=== PATIENT | female | born 1980 | race Caucasian/White ===

== ENCOUNTER 2016-10-02 16:03 | Emergency (ER) | payer OTHER ==
[~2016-10-02 16:03] MED LIST: PHENERGAN25 M1 PO; PRENATAL MULTIV1 TA1; PRILOSEC20 MG PO; PROTONIX PO; SOMA PO; ULTRAM PO; VICODIN 5/500 T1 TAB PO; ZOFRAN PO; [UNRECOGNIZED DRUG - OTHER] PO
== END 2016-10-02 18:15 | disposition home or self-care (01) ==
LOC: CED 16:03
DX: G97.1 Other reaction to spinal and lumbar puncture (principal); F17.200 Nicotine dependence, unspecified, uncomplicated; Z88.0 Allergy status to penicillin; Z88.2 Allergy status to sulfonamides; Z98.51 Tubal ligation status; Z90.49 Acquired absence of other specified parts of digestive tract; Z90.710 Acquired absence of both cervix and uterus
CPT/HCPCS: 36415; 96361; 96374; 96375; 99284; J0595; J1200; J1885; J2765; J2930

== ENCOUNTER 2017-04-06 12:24 | Emergency (ER) | payer OTHER ==
[~2017-04-06] VITALS: Ht 165.1 cm; Wt 88.5 kg
--- NOTE | ~2017-04-06 | CT2 ---
[facility] A Service of [facility] RADIOLOGY TEXT RESULTS PATIENT: UMER HOYOS LOCATION: [facility] : 76 UNIT #: [id number] AGE: [address]: Tino Urban MD SEX: F ORDER DR: [id number] [facility] [address] [place], [place] [address] [id number] E MR#: [id number] Acc #: [id number] NAME: UMER HOYOS : 1980 SEX: F STUDY DATE/TIME: 04/06/2017 16:14 UNIT: [facility] ROOM: STUDY DESCRIPTION: CT Abd and Pelv W Cont Attending Physician: Tino Urban M.D. Ordering Physician: Tino Urban M.D. Primary Care Physician: Primary Care Physician No MEDICAL IMAGING REPORT This report is preliminary unless electronic signature is present EXAM CT abdomen and pelvis, 04/06/2017 HISTORY Pain. Left lower quadrant pain for 2 weeks. Bloody stools since 04/03/2017. TECHNIQUE CT abdomen and pelvis performed with intravenous administration of 100 mL Isovue-370. Enteric contrast also administered. No prior CTs of abdomen or pelvis for comparison. This CT exam was performed with one or more of the following radiation dose reduction techniques: automatic exposure control, adjustment of mA and/or kV according to patient size, and iterative reconstruction. FINDINGS The lung bases shows posterior left lower lobe subpleural noncalcified 3-4 mm nodule image #3 and posterior subpleural 2 mm noncalcified nodule image #2. Inferior heart and pericardium unremarkable. The liver, gallbladder, spleen, pancreas, adrenal glands, and kidneys are remarkable. CT PELVIS: No inguinal adenopathy. Urinary bladder unremarkable. Status post hysterectomy. No suspicious adnexal structures. I believe the patient retains the right ovary which is unremarkable in appearance. Left ovary not visualized. Please correlate with surgical history. There is no free fluid in the pelvis. There is no pelvic or retroperitoneal adenopathy. Distal esophagus, stomach, small bowel and appendix are normal. Ascending and transverse colon unremarkable. Mild mural prominence sigmoid colon without focal abnormality. This segment of colon is decompressed and the appearance could be a reflection of decompressed state. Correlate with any clinical concern for very mild sigmoid colitis. [facility]. [facility] [place] A Service of [facility] RADIOLOGY TEXT RESULTS PATIENT: UMER HOYOS LOCATION: [facility] : 76 UNIT #: [id number] AGE: [address]: Tino Urban MD SEX: F ORDER DR: Wait should be given clinical assessment. No focal wall thickening or obstruction. No free air, abscess or fluid collection. The vascular structures are remarkable. The bony structures show no clearly acute abnormality. IMPRESSION 1. Questionable mild mural thickening in the sigmoid colon. The appearance may simply reflect the decompressed state of the sigmoid colon. Correlate with any clinical concern for very mild colitis. There is no focal eccentric mural thickening. There is no free air, fluid collection, abscess or obstruction. 2. The remainder of the alimentary canal including appendix unremarkable. 3. Status post hysterectomy. I believe the patient retains normal right ovary. Left ovary not visualized. Correlate with surgical history. 4. There are two small 2-4 mm noncalcified subpleural nodules, left lung base. If the patient has risk factors for pulmonary malignancy including history of tobacco usage, 12-month CT followup would be recommended. In the absence of such risk factors, no additional followup is necessary. Dictated by... Lino Cabrera M.D. THIS IS AN ELECTRONICALLY VERIFIED REPORT Lino Cabrera M.D. at 04/07/2017 6:35 PM THUAN/starla TD: 04/06/2017 21:10 JOB #: [id number] MEDICAL IMAGING REPORT Page 1 of 1 COPY
[2017-04-06 13:20] LABS: URINE SOURCE CLEAN CATCH
[2017-04-06 13:25] LABS: BASOPHIL% 0.5 % (0-2.5); EOSINOPHIL# 0.1 X10e3 (0-0.7); EOSINOPHIL% 1.7 % (0.0-7.0); HEMOGLOBIN 11.8 gm/dL (12.0-16.0); LYMPHOCYTE# 1.9 X10e3 (1.0-3.5); LYMPHOCYTE% 31.1 % (17.0-45.0); MEAN CELL VOLUME 93.8 FL (83-96); MEAN CORPUSCULAR HEMOGLOBIN 32.4 PG (28-34); MEAN CORPUSCULAR HGB CONC 34.5 g/dL (30-36); MEAN PLATELET VOLUME 8.2 FL (6.5-11.5); MONOCYTE# 0.3 X10e3 (0-1.0); MONOCYTE% 4.3 % (3.0-12.0); NEUTROPHIL# 3.8 X10e3 (1.5-7.1); NEUTROPHIL% 62.4 % (40-75); PLATELET COUNT 250 X10e3 (140-420); RED BLOOD COUNT 3.63 X10e (3.90-5.30); RED CELL DISTRIBUTION WIDTH 12.6 % (11.0-15.5); WHITE BLOOD COUNT 6.1 X10e3 (4.0-10.5)
[2017-04-06 13:26] LABS: DIFF IND NO
[2017-04-06 13:46] LABS: URINE APPEARANCE CLEAR; URINE BILIRUBIN NEG (NEG); URINE BLOOD NEG (NEG); URINE COLOR YELLOW; URINE GLUCOSE NEG (NEG); URINE KETONE NEG (NEG); URINE LEUKOCYTE ESTERASE NEG (NEG); URINE NITRATE NEG (NEG); URINE PROTEIN NEG (NEG); URINE UROBILINOGEN 0.2 MG/DL (NEG)
[2017-04-06 13:54] LABS: ALBUMIN SERUM 3.8 g/dL (3.5-5.0); ALKALINE PHOSPHATASE 60 U/L (32-92); ALT (SGPT) 17 U/L (10-40); AMYLASE 19 U/L (0-46); AST (SGOT) 17 U/L (10-42); BILIRUBIN, DIRECT 0.1 mg/dL (0.0-0.2); BILIRUBIN,TOTAL <0.1 mg/dL (0.2-2.0); BLOOD UREA NITROGEN 9 mg/dL (9-23); BUN/CREATININE RATIO 11.25; CALCIUM SERUM 8.9 mg/dL (8.4-10.2); CARBON DIOXIDE 26 mmol/L (22-31); CHLORIDE 109 mmol/L (100-111); CREATININE SERUM 0.8 mg/dL (0.6-1.4); GLOM FILT RATE Estimated 93.6 mL/min (>60); GLUCOSE FASTING 90 mg/dL (70-110); LIPASE 17 U/L (22-51); POTASSIUM 4.2 mmol/L (3.5-5.1); PROTEIN TOTAL SERUM 6.6 g/dL (6.0-8.3); SODIUM 141 mmol/L (135-145)
[2017-04-06 14:00] LABS: CULTURE INDICATED? NO
== END 2017-04-06 19:56 | disposition home or self-care (01) ==
LOC: CED 12:24
PROVIDERS: Emergency Medicine
DX: K52.9 Noninfective gastroenteritis and colitis, unspecified (principal); M79.7 Fibromyalgia; Z90.710 Acquired absence of both cervix and uterus; F17.200 Nicotine dependence, unspecified, uncomplicated; Z88.0 Allergy status to penicillin; Z88.2 Allergy status to sulfonamides
CPT/HCPCS: 36415; 74177; 80048; 80076; 81003; 82150; 83690; 84703; 85025; 96360; 96372; 99284; J0500; Q9967